=== PATIENT | female | born 1990 | race American Indian/Alaskan Native ===

== ENCOUNTER 2020-03-09 20:41 | Emergency (ER) | payer SELFPAY ==
--- NOTE | 2020-03-10 01:16 | Cat Scan Report ---
CT HEAD WITHOUT CONTRAST INDICATION: Fell face down out of wheelchair TECHNIQUE: All CT scans at this location are performed using CT dose reduction for ALARA by means of automated exposure control. COMPARISON: None available. FINDINGS: BRAIN: No hemorrhage or mass effect are seen. No evidence of acute infarction is noted. ORBITS: Normal as visualized. SOFT TISSUES OF HEAD: Normal. CALVARIUM: Normal. VISUALIZED PARANASAL SINUSES AND MASTOID AIR CELLS: Clear. ADDITIONAL FINDINGS: None. IMPRESSION: No acute intracranial abnormality. CT FACE HISTORY: Fell face down out of wheelchair COMPARISON: None. TECHNIQUE: Axial images of the face were obtained. Coronal reformats were generated. All CT scans at this location are performed using CT dose reduction for ALARA by means of automated exposure control . CONTRAST: None. FINDINGS: Facial bones: No fracture or other significant abnormality. Paranasal sinuses: Clear. Orbits: No significant abnormality. Visualized images of the intracranial space: No significant abnormality. Additional findings: None. IMPRESSION: No significant abnormality. CT CERVICAL SPINE WITHOUT CONTRAST INDICATION: Fell face down out of wheelchair TECHNIQUE: All CT scans at this location are performed using CT dose reduction for ALARA by means of automated exposure control. Axial CT images were obtained through the cervical spine. Sagittal and co irma reformatted images were produced. COMPARISON: None available. Cervical spine findings: No fractures or subluxation are seen. No significant degenerative arthritic changes are noted. No obvious disc herniation is seen. Additional findings: Moderate adenopathy is seen bilaterally in the neck in multiple areas. Largest n ode within the neck proper is on the right deep to the posterior aspect of the sternocleidomastoid mu scle having a short axis diameter of 10 mm. More inferiorly in the extreme upper portion of the media stinum in the upper right paratracheal zone an enlarged node is seen measuring 2.2 cm in short axis d iameter. IMPRESSION: 1. No acute abnormalities are seen 2. Neck and upper mediastinal lymphadenopathy. Follow-up assessment is suggested. A process such as l ymphoma is possible. Signer Name: Angel Flores MD Signed: 03/10/2020 1:12 AM Workstation Name: [id number]
--- NOTE | 2020-03-10 07:35 | Emergency Department Report ---
ED General Adult HPI - General Chief complaint: Extremity Injury, Lower Stated complaint: FEET PAIN Time Seen by Provider: 03/10/20 06:58 Source: patient, EMS Mode of arrival: Ambulatory Limitations: No Limitations - History of Present Illness Initial comments: This is a 30-year-old female who admits homelessness and presented to the emergency department via EMS reportedly for a sore throat which she has no complaint of currently and swelling to feet which she also has no complaint of currently. She states that she would like something to eat. She also states that she is on medicine for PTSD and I suspect her bipolar disorder. She is poorly cooperative. According to the note I have, the patient fell in the triage area. Prior to my arrival she is already had screening CT scans of her head face and neck which were negative. On my exam she has no deformity or significant trauma to the face or of the head grossly evident. She is poorly cooperative with answering questions. Patient does states that she has been in the [place] area for 6 days. He does not provide a lot of additional information. She does tell me that she has had a chest tube and broken ribs in the past. He does not report any recent trauma outside the hospital. -: Gradual Severity scale (0 -10): 0 Associated Symptoms: denies other symptoms, cough (Patient is coughing but is not aware of an acute cough) - Related Data Allergies Allergy/AdvReac Type Severity Reaction Status Date / Time acetaminophen [From Lortab] Allergy Anaphylaxis Verified 03/09/20 21:11 hydrocodone [From Lortab] Allergy Anaphylaxis Verified 03/09/20 21:11 Penicillins Allergy Unknown Verified 03/09/20 21:10 ED Review of Systems ROS: Stated complaint: FEET PAIN Other details as noted in HPI Comment: Unobtainable due to pts medical conditions ED Past Medical Hx - Past Medical History Previous Medical History?: Yes Hx Psychiatric Treatment: Yes (PTSD, Manic Depression, Bipolar, ADHD) Additional medical history: Multiple Concussions - Surgical History Past Surgical History?: Yes Additional Surgical History: Fluid on the Brain - Social History Smoking Status: Never Smoker ED Physical Exam - General Limitations: Other General appearance: alert, in no apparent distress - Head Head exam: Present: atraumatic (No gross evidence), normocephalic - Eye Eye exam: Present: normal appearance - ENT ENT exam: Present: mucous membranes moist, other (No deformity) - Neck Neck exam: Present: normal inspection. Absent: tenderness, meningismus - Respiratory Respiratory exam: Present: normal lung sounds bilaterally. Absent: respiratory distress - Cardiovascular Cardiovascular Exam: Present: regular rate, normal rhythm. Absent: systolic murmur, diastolic murmur, rubs, gallop - GI/Abdominal GI/Abdominal exam: Present: soft, normal bowel sounds. Absent: distended, tenderness, guarding, rebound, rigid - Extremities Exam Extremities exam: Absent: joint swelling, calf tenderness - Back Exam Back exam: Present: normal inspection - Neurological Exam Neurological exam: Present: alert, oriented X3, CN II-XII intact. Absent: motor sensory deficit - Psychiatric Psychiatric exam: Present: agitated, flat affect - Skin Skin exam: Present: warm, dry, intact, normal color. Absent: rash ED Course Vital Signs 03/09/20 03/10/20 21:12 00:30 Temperature 99.7 F H 98.9 F Pulse Rate 100 H 95 H Respiratory 18 20 Rate Blood Pressure 103/58 Blood Pressure 110/61 [Right] O2 Sat by Pulse 99 99 Oximetry - Reevaluation(s) Reevaluation #1: Patient will patient will be further screened before medical issues. Blood work is pending. 03/10/20 07:36 03/10/20 10:00 I did not find an indication for admission. Patient is resting comfortably. She has eaten a breakfast. She will be discharged to outpatient follow-up. ED Medical Decision Making - Lab Data Result diagrams: 03/10/20 07:23 03/10/20 07:23 Laboratory Results - last 24 hr 03/10/20 03/10/20 03/10/20 07:23 07:23 07:23 WBC RBC Hgb Hct MCV MCH MCHC RDW Plt Count Lymph % (Auto) Douglas % (Auto) Eos % (Auto) Baso % (Auto) Lymph # Douglas # Eos # Baso # Seg Neutrophils % Seg Neutrophils # PT INR APTT Sodium Potassium Chloride Carbon Dioxide Anion Gap BUN Creatinine Estimated GFR BUN/Creatinine Ratio Glucose Calcium Magnesium Total Bilirubin Direct Bilirubin Indirect Bilirubin AST ALT Alkaline Phosphatase Total Creatine Kinase CK-MB (CK-2) CK-MB (CK-2) Rel Index Troponin T Total Protein Albumin Albumin/Globulin Ratio Salicylates < 0.3 L Acetaminophen 5.0 L Plasma/Serum Alcohol < 0.01 03/10/20 03/10/20 03/10/20 07:23 07:23 07:23 WBC 12.5 H RBC 4.15 Hgb 12.5 Hct 36.0 MCV 87 MCH 30 MCHC 35 H RDW 13.6 Plt Count 260 Lymph % (Auto) 12.2 L Douglas % (Auto) 6.7 Eos % (Auto) 0.7 Baso % (Auto) 0.9 Lymph # 1.5 Douglas # 0.8 Eos # 0.1 Baso # 0.1 Seg Neutrophils % 79.5 H Seg Neutrophils # 9.9 H PT 14.2 INR 1.09 APTT 26.0 Sodium 138 Potassium 3.7 Chloride 101.9 Carbon Dioxide 20 L Anion Gap 20 BUN 10 Creatinine 0.5 L Estimated GFR > 60 BUN/Creatinine Ratio 20 Glucose 114 H Calcium 8.8 Magnesium 2.20 Total Bilirubin 1.10 Direct Bilirubin 0.3 H Indirect Bilirubin 0.8 AST 25 ALT 19 Alkaline Phosphatase 86 Total Creatine Kinase 504 H CK-MB (CK-2) 5.8 H CK-MB (CK-2) Rel Index 1.1 Troponin T < 0.010 Total Protein 6.3 Albumin 4.1 Albumin/Globulin Ratio 1.9 Salicylates Acetaminophen Plasma/Serum Alcohol - Radiology Data Radiology results: report reviewed (Chest x-ray no acute process), image reviewed Critical care attestation.: If time is entered above; I have spent that time in minutes in the direct care of this critically ill patient, excluding procedure time. ED Disposition Clinical Impression: Psychiatric disorder, Homelessness Fall Qualifiers: Encounter type: initial encounter Qualified Code(s): W19.XXXA - Unspecified fall, initial encounter Disposition: TO HOME OR SELFCARE Is pt being admited?: No Does the pt Need Aspirin: No Condition: Stable Instructions: Bipolar Disorder (ED), Fall Prevention (ED) Additional Instructions: Return any acute change or problem. Referrals: PRIMARY CARE, [Primary Care Provider] - 3-5 Days [facility] [Outside] - 3-5 Days [facility] [Provider Group] - 3-5 Days Time of Disposition: 10:01
[2020-03-10 07:45] LABS: Basophils # (Auto) 0.1 K/mm3 (0.0-0.1); Basophils % (Auto) 0.9 % (0.0-1.8); Eosinophils # (Auto) 0.1 K/mm3 (0.0-0.4); Eosinophils % (Auto) 0.7 % (0.0-4.3); Hemoglobin 12.5 gm/dl (10.1-14.3); Lymphocytes # (Auto) 1.5 K/mm3 (1.2-5.4); Lymphocytes % (Auto) 12.2 % (13.4-35.0); Mean Corpuscular HGB Conc 35 % (30-34); Mean Corpuscular Volume 87 fl (79-97); Monocytes # (Auto) 0.8 K/mm3 (0.0-0.8); Monocytes % (Auto) 6.7 % (0.0-7.3); Platelet Count 260 K/mm3 (140-440); Red Blood Count 4.15 M/mm3 (3.65-5.03); Red Cell Distribution Width 13.6 % (13.2-15.2)
[2020-03-10 07:53] LABS: INR 1.09 (0.87-1.13)
[2020-03-10 08:21] LABS: Creatine Kinase MB 5.8 ng/mL (0.0-4.0)
[2020-03-10 08:26] LABS: Alanine Aminotransferase 19 units/L (7-56); Albumin 4.1 g/dL (3.9-5); Bilirubin,Direct 0.3 mg/dL (0-0.2); Blood Urea Nitrogen 10 mg/dL (7-17); Calcium 8.8 mg/dL (8.4-10.2); Hemolysis Index 11
[2020-03-10 08:27] LABS: BUN/Creatinine Ratio 20
--- NOTE | 2020-03-10 08:36 | XRay Report ---
CHEST 1 VIEW INDICATION: cough. COMPARISON: None. FINDINGS: Support devices: None. Heart: Within normal limits. Lungs/Pleura: No acute air space or interstitial disease. Mildly diminished lung volumes. Additional findings: None. IMPRESSION: No acute abnormality. Signer Name: Jean Navarrete MD Signed: 03/10/2020 8:32 AM Workstation Name: [id number]
[2020-03-10 10:54] VITALS: BP 107/63
== END 2020-03-10 10:54 | disposition home or self-care (01) ==
LOC: ED 20:41
DX: F31.9 Bipolar disorder, unspecified (principal); F90.9 Attention-deficit hyperactivity disorder, unspecified type; Z98.890 Other specified postprocedural states; Z59.0 Homelessness; Z91.81 History of falling; Z88.0 Allergy status to penicillin; Z88.8 Allergy status to other drugs, medicaments and biological substances
CPT/HCPCS: 36415; 70450; 70486; 70490; 71045; 80048; 80076; 80320; 82550; 82553; 83735; 84484; 85025; 85610; 85730; G0480